=== PATIENT | female | born 1980 | race Two or more races ===

== ENCOUNTER 2016-11-22 05:25 | Emergency (ER) | payer MEDICAID ==
[~2016-11-22] VITALS: Ht 157.5 cm; Wt 72.6 kg
[~2016-11-22 05:25] MED LIST: EXCEDRIN MIGRA1 EAC1 PO; IBUPROFEN600 MG ORAL; NKM; NORCO 5-325 TA1 EACH ORAL; REGLAN10 MG ORAL; ZOFRAN4 MG ORAL
[2016-11-22 05:40] VITALS: BP 155/99
[2016-11-22] MEDS ORDERED: HYDROmorphone 1mg/ml Carpuject IM ONE (06:00)
[2016-11-22] MEDS ORDERED: HYDROCODON-ACE1 EA15 ORAL (06:14)
--- NOTE | 2016-11-22 06:14 | Emergency Room Report ---
History of Present Illness General Chief Complaint: Headache Source: Patient Present Illness HPI Is a 36-year-old female with history migraine. She said she gets it monthly and usually able to tolerate with tguj-sux-hjlscnk medication. About once a year or so it gets severe that she has to go to the hospital. This is one of those time. She's been having headache is been ongoing for about 12 hours. Pain is diffuse and throbbing in nature. She has photophobia and has vomiting. Similar to previous episode. No fever or chills. No trauma. Similar symptom in the past. Pain is diffuse in nature. Lfue-oka-yvzxgzt medication not helping. Allergies: Coded Allergies: No Known Allergies (Unverified , 08/06/14) Patient History Past Medical History: see triage record, old chart reviewed Past Surgical History: other Pertinent Family History: none Social History: Denies: smoking Last Menstrual Period: LAST WEEK Now: No : 3 Immunizations: other Reviewed Nursing Documentation: PMH: Agreed, PSxH: Agreed Nursing Documentation-PMH Past Medical History: No Stated History Hx Neurological Problems: No - Chronic MEEK Review of Systems Eye: Denies: blurred vision, eye pain ENT: Denies: ear pain, nose congestion, throat swelling Respiratory: Denies: cough, shortness of breath Cardiovascular: Denies: chest pain, palpitations Gastrointestinal: Denies: abdominal pain, diarrhea, nausea, vomiting Musculoskeletal: Denies: back pain, joint pain Skin: Denies: rash Neurological: Reports: headache, Denies: numbness Endocrine: Denies: increased thirst, increased urine Hematologic/Lymphatic: Denies: easy bruising All Other Systems: negative except mentioned in HPI Physical Exam Vital Signs Date Time Temp Pulse Resp B/P Pulse Ox O2 Delivery O2 Flow Rate FiO2 11/22/16 05:34 97.2 64 18 159/103 98 Room Air vitals with hypertension Sp02 EP Interpretation: reviewed, normal General Appearance: well appearing, no apparent distress, alert Head: normocephalic, atraumatic Eyes: bilateral eye EOMI, bilateral eye PERRL ENT: hearing grossly normal, normal pharynx Neck: full range of motion, supple, no meningismus Respiratory: chest non-tender, lungs clear, normal breath sounds Cardiovascular #1: regular rate, rhythm, no murmur Gastrointestinal: normal bowel sounds, non tender, no mass, no organomegaly, no bruit, non-distended Musculoskeletal: back normal, gait/station normal, normal range of motion Psychiatric: mood/affect normal Skin: warm/dry Medical Decision Making Diagnostic Impression: Primary Impression: Headache Qualified Codes: R51 - Headache ER Course Patient with headache consistent with her previous migraine. No evidence of meningitis, bleed, or neoplastic process. She felt better now. We'll discharge home. Last Vital Signs Date Time Temp Pulse Resp B/P Pulse Ox O2 Delivery O2 Flow Rate FiO2 11/22/16 05:40 97.6 77 19 155/99 99 Room Air Status: improved Disposition: HOME, SELF-CARE Condition: Stable Scripts Hydrocodone/Acetaminophen 5-325* (HYDROCODONE/ACETAMINOPHEN 5-325*) 1 Each Tablet 1 TAB ORAL Q6H Y for For Pain, #30 TAB 0 Refills Prov: DEENA TENA M.D. 11/22/16 Referrals: NOT CHOSEN [facility]/,REFERRING (PCP) Patient Instructions: Migraine Headache Additional Instructions: Followup with your DrSurendra in 7 days. Return if symptom worsen. DEENA TENA M.D. November 22, 2016 06:14
[2016-11-22 06:20] VITALS: BP 148/96
== END 2016-11-22 06:20 | disposition home or self-care (01) ==
LOC: EMR 05:50
DX: R51 Headache (principal); H53.149 Visual discomfort, unspecified; R11.10 Vomiting, unspecified
CPT/HCPCS: 96372; 99283; J1170; J2550

== ENCOUNTER 2017-01-18 05:02 | Emergency (ER) | payer MEDICAID ==
[~2017-01-18] VITALS: Ht 157.5 cm; Wt 65.8 kg
[~2017-01-18 05:02] MED LIST changes: +HYDROCODON-ACE1 EA15 ORAL
[2017-01-18] MEDS ORDERED: NKM (05:08)
--- NOTE | 2017-01-18 05:28 | Emergency Room Report ---
History of Present Illness General Chief Complaint: Headache Source: Patient Present Illness HPI The patient presents with a headache. It's frontal. She has what sounds like an aura with some flashing lights. She has been vomiting and has nausea with this. She's been here and seen here multiple times with these headaches. She had a CAT scan done in the past = normal. Has had labs done in the past = normal. She does not have a private physician at this time. She denies any fevers, vomiting blood, chest pain, shortness of breath, productive cough, skin rash. She denies dysuria. Her last period was 2 weeks ago normal for her. Is not the worst headache of her life. Pain 10/10 pounding with some radiation to back of head. Meds in the past haven't helped. She does not have medicine for nausea. No weakness, numbness, seizure, incontinence, blood thinners, oncologic problems. These HAs scare her. 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 Now: No : 3 Para: 3 Reviewed Nursing Documentation: PMH: Agreed, PSxH: Agreed Nursing Documentation-PMH Past Medical History: No Stated History Hx Neurological Problems: No - Chronic MEEK Review of Systems All Other Systems: negative except mentioned in HPI Physical Exam Vital Signs Date Time Temp Pulse Resp B/P Pulse Ox O2 Delivery O2 Flow Rate FiO2 01/18/17 05:04 98.4 78 14 175/100 97 Room Air Sp02 EP Interpretation: reviewed, normal General Appearance: well appearing, no apparent distress, GCS 15 Head: normocephalic Eyes: bilateral eye PERRL, bilateral eye normal inspection ENT: moist mucus membranes Neck: supple Respiratory: lungs clear, normal breath sounds Cardiovascular #1: regular rate, rhythm Cardiovascular #2: 2+ radial (R) Gastrointestinal: normal inspection, normal bowel sounds, non tender, no mass, non-distended Musculoskeletal: back normal, gait/station normal, normal range of motion Neurologic: alert, 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 Differential includes migraine, tension, trigeminal neuralgia, other headache that time. By her history it sounds like migraine. In the past when others have see her they diagnosed auras. Patient will be treated with Reglan, Benadryl and Toradol. She has a nonfocal neurologic exam and no imaging is indicated at this time. She's afebrile. Labs and CT are reviewed when she had the same problem. Improved with reglan and toradol (she reported pain resolved to me, but this is not recorded). No medical emergency. I stressed need to have her own MD and to seek neurologic consultation. Patient stable for outpatient observation and treatment. Last Vital Signs Date Time Temp Pulse Resp B/P Pulse Ox O2 Delivery O2 Flow Rate FiO2 01/18/17 06:33 98.4 01/18/17 06:30 14 160/98 97 Room Air 01/18/17 05:04 78 Status: improved Disposition: HOME, SELF-CARE Condition: Improved Scripts Ibuprofen* (MOTRIN*) 600 Mg Tablet 600 MG ORAL Q6H Y for For Pain, #16 TAB Prov: Darrel Morillo M.D. 01/18/17 Tramadol Hcl* (ULTRAM*) 50 Mg Tablet 50 MG ORAL Q6H Y for For Pain, #10 TAB 0 Refills Prov: Darrel Morillo M.D. 01/18/17 Ondansetron Odt* (ZOFRAN ODT*) 4 Mg Tab.rapdis 4 MG ORAL Q8HR Y for Nausea & Vomiting, #8 TAB 1 Refill Prov: Drarel Morillo M.D. 01/18/17 Referrals: NOT CHOSEN [facility]/,REFERRING (PCP) Darrel Morillo M.D. Jan 18, 2017 05:28
[2017-01-18] MEDS ORDERED: DiphenhydrAMINE 50mg/ml Inj IVP ONE (05:30)
[2017-01-18] MEDS ORDERED: Metoclopramide 10mg/2ml Inj IVP ONE (05:30)
[2017-01-18] MEDS ORDERED: Ketorolac 30mg Inj IV ONE (05:30)
[2017-01-18] MEDS ORDERED: TRAMADOL HCL50 MG ORAL (06:22)
[2017-01-18] MEDS ORDERED: IBUPROFEN600 MG ORAL (06:22)
[2017-01-18] MEDS ORDERED: ZOFRAN ODT4 MG ORAL (06:22)
[2017-01-18 06:29] VITALS: BP 160/98
[2017-01-18 06:30] VITALS: BP 160/98
== END 2017-01-18 06:35 | disposition home or self-care (01) ==
LOC: EMR 05:16
DX: R51 Headache (principal)
CPT/HCPCS: 96374; 96375; 99284; J1200; J1885; J2765

== ENCOUNTER 2017-06-05 19:07 | Emergency (ER) | payer MEDICAID ==
[~2017-06-05] VITALS: Ht 162.6 cm; Wt 63.5 kg
[~2017-06-05 19:07] MED LIST changes: +TRAMADOL HCL50 MG ORAL; +ZOFRAN ODT4 MG ORAL
[2017-06-05 19:29] VITALS: BP 138/78
[2017-06-05] MEDS: Metoclopramide 10mg/2ml Inj IM ONE (19:39)
[2017-06-05] MEDS: Excedrin Migraine tab ORAL ONE (19:40)
[2017-06-05 20:07] LABS: APPEARANCE,URINE CLEAR; KETONES,URINE NEGATIVE (NEGATIVE); LEUKOCYTE ESTERASE ,URINE NEGATIVE (NEGATIVE); NITRITE,URINE NEGATIVE (NEGATIVE); PH,URINE 6 (4.5-8.0); PROTEIN,URINE NEGATIVE (NEGATIVE); UROBILINOGEN,URINE NORMAL MG/DL (0.0-1.0)
[2017-06-05 20:13] LABS: BACTERIA,URINE FEW /HPF; SQUAMOUS EPITHELIAL CELL,UR FEW /LPF (NONE/OCC); WBC,URINE 0-2 /HPF (0 - 2)
--- NOTE | 2017-06-05 20:34 | Emergency Room Report ---
History of Present Illness General Chief Complaint: Headache Source: Patient Present Illness HPI 37-year-old female presents to the emergency department complaining of 9/10 in severity right-sided throbbing headache since this a.m. with progressive onset. Patient reports history of migraines and she states that her current symptoms are similar in character to previous migraines. Patient denies head trauma, nausea, vomiting, fevers, chills, neck pain or stiffness. Patient states that she took rlzu-eyh-uwvilzi pain medication without relief. Patient denies dysuria, frequency, hematuria or . Patient denies abdominal pain. She denies blurry vision, changes in vision, seeing floaters. Patient reports some mild photophobia. denies recent spinal procedures. Patient denies hyperacusis. Denies CP, Palpitations, LOC, AMS, dizziness, Changes in Vision, Sensation, paresthesias, or a sudden severe headache out of character to previous headaches. Allergies: Coded Allergies: No Known Allergies (Unverified , 08/06/14) Patient History Past Medical History: see triage record, migraines Past Surgical History: none Pertinent Family History: none Last Menstrual Period: 06/05/17 Now: No Reviewed Nursing Documentation: PMH: Agreed, PSxH: Agreed Nursing Documentation-PMH Past Medical History: No History, Except For Hx Neurological Problems: No - Chronic MEEK Review of Systems All Other Systems: negative except mentioned in HPI Physical Exam Vital Signs Date Time Temp Pulse Resp B/P (MAP) Pulse Ox O2 Delivery O2 Flow Rate FiO2 06/05/17 19:13 98.2 82 17 138/78 100 Room Air Sp02 EP Interpretation: reviewed, normal General Appearance: alert, GCS 15, non-toxic, mild distress Head: normocephalic, atraumatic Eyes: bilateral eye normal inspection, bilateral eye PERRL, bilateral eye photophobia ENT: hearing grossly normal, normal voice, TMs + canals normal Neck: full range of motion, no meningismus, no bony tend Respiratory: chest non-tender, lungs clear, normal breath sounds, speaking full sentences Cardiovascular #1: regular rate, rhythm Gastrointestinal: non tender, soft Rectal: deferred Genitourinary: normal inspection, no CVA tenderness Musculoskeletal: back normal, gait/station normal, normal range of motion, non- tender Neurologic: alert, oriented x3, responsive, motor strength/tone normal, sensory intact, normal gait, speech normal, no pronator, other - equal transmission operator strength, no facial droop. Skin: normal color, no rash, warm/dry, well hydrated Lymphatic: no adenopathy Medical Decision Making PA Attestation Dr. Jacome is my supervising Physician whom patient management has been discussed with. Diagnostic Impression: Primary Impression: Headache Qualified Codes: R51 - Headache ER Course 37-year-old female presents to the emergency department complaining of 9/10 in severity right-sided throbbing headache since this a.m. with progressive onset. Patient reports history of migraines and she states that her current symptoms are similar in character to previous migraines. Patient denies head trauma, nausea, vomiting, fevers, chills, neck pain or stiffness. Patient states that she took uxam-enx-eabyljf pain medication without relief. Patient denies dysuria, frequency, hematuria or . Patient denies abdominal pain. She denies blurry vision, changes in vision, seeing floaters. Patient reports some mild photophobia. denies recent spinal procedures. Patient denies hyperacusis. Denies CP, Palpitations, LOC, AMS, dizziness, Changes in Vision, Sensation, paresthesias, or a sudden severe headache out of character to previous headaches. Ddx considered but are not limited to migraine, SAH, Psedudo motor Cerebri, Mass lesion, Cluster MEEK, Tension MEEK, Post lumbar puncture MEEK. Vital signs: are WNL, pt. is afebrile H&PE are most consistent with migraine headache ORDERS: -UA: Unremarkable -Urine Hcg: Negative ED INTERVENTIONS: -Reglan PO - Excedrin PO -Upon re-evaluation pt. reports her MEEK has resolved with ED interventions. d/w pt. the results of her Urine testing. I do not suspect an emergent condition at this time. With current presentation, pt. is stable for close outpatient follow up and conservative treatment. D/w pt. to return promptly to ED with worsening or new symptoms.- Pt. (and or responsible alliance party) verbalizes' understanding and agreement with proposed treatment plan. DISCHARGE: At this time pt. is stable for d/c to home. Will provide printed patient care instructions, and any necessary prescriptions. Care plan and follow up instructions have been discussed with the patient prior to discharge. Labs Test 06/05/17 19:38 Urine Color Pale yellow Urine Appearance Clear Urine pH 6 (4.5-8.0) Urine Specific [place] 1.015 (1.005-1.035) Urine Protein Negative (NEGATIVE) Urine Glucose (UA) Negative (NEGATIVE) Urine Ketones Negative (NEGATIVE) Urine Occult Blood 4+ (NEGATIVE) Urine Nitrite Negative (NEGATIVE) Urine Bilirubin Negative (NEGATIVE) Urine Urobilinogen Normal MG/DL (0.0-1.0) Urine Leukocyte Esterase Negative (NEGATIVE) Urine RBC 5-10 /HPF (0 - 2) Urine WBC 0-2 /HPF (0 - 2) Urine Squamous Epithelial Cells Few /LPF (NONE/OCC) Urine Bacteria Few /HPF (NONE) Urine HCG, Qualitative Negative Last Vital Signs Date Time Temp Pulse Resp B/P (MAP) Pulse Ox O2 Delivery O2 Flow Rate FiO2 06/05/17 19:13 98.2 82 17 138/78 100 Room Air Disposition: HOME, SELF-CARE Condition: Stable Scripts Aspirin/Acetaminophen/Caffeine (EXCEDRIN MIGRAINE GELTAB) 1 Each Tablet 1 EACH PO Q6HR, #20 TAB Prov: Sumi Gibson 06/05/17 Metoclopramide Hcl* (REGLAN*) 10 Mg Tablet 10 MG ORAL THREE TIMES A DAY Y for For Headache, #20 TAB Prov: Sumi Gibson 06/05/17 Patient Instructions: Migraine Headache Additional Instructions: Take medications as directed. Follow up with a Primary Care Provider in 3-5 days for Neurologist referral , even if your symptoms have resolved. --Please review list of primary care clinics, if you do not already have a primary care provider Return sooner to ED if new symptoms occur, or current symptoms become worse. - Please note that this Emergency Department Report was dictated using [employer] radiation oncology technology software, occasionally this can lead to erroneous entry secondary to interpretation by the dictation equipment. Sumi Gibson Jun 05, 2017 20:34
[2017-06-05] MEDS ORDERED: EXCEDRIN MIGRA1 EACH PO (20:35)
[2017-06-05] MEDS ORDERED: REGLAN10 MG ORAL (20:35)
[2017-06-05 20:45] VITALS: BP 137/79
== END 2017-06-05 20:45 | disposition home or self-care (01) ==
LOC: EMR 19:26
DX: R51 Headache (principal)
CPT/HCPCS: 81003; 81025; 96372; 99284; J2765

== ENCOUNTER 2017-10-24 09:18 | Emergency (ER) | payer MEDICAID ==
[~2017-10-24] VITALS: Ht 165.1 cm; Wt 69.9 kg
[~2017-10-24 09:18] MED LIST changes: +EXCEDRIN MIGRA1 EACH PO
[2017-10-24 09:31] VITALS: BP 139/85
[2017-10-24] MEDS ORDERED: Ketorolac 60mg Inj IM ONE (10:15)
[2017-10-24] MEDS ORDERED: Ketorolac 30mg Inj IV ONE (10:30)
[2017-10-24 10:52] LABS: HEMATOCRIT 40.9 % (37.0-47.0); HEMOGLOBIN 14.3 G/DL (12.0-16.0); MEAN CORPUSCULAR VOLUME 89 FL (80-99); PLATELET COUNT 219 K/UL (150-450); RED BLOOD COUNT 4.58 M/UL (4.20-5.40); RED CELL DISTRIBUTION WIDTH 12.2 % (11.6-14.8); WHITE BLOOD COUNT 17.5 K/UL (4.8-10.8)
[2017-10-24 10:54] LABS: ANION GAP 13 mmol/L (5-15); BLOOD UREA NITROGEN 12 mg/dL (7-18); CALCIUM 8.9 MG/DL (8.5-10.1); CARBON DIOXIDE 20 MMOL/L (21-32); CHLORIDE 104 MMOL/L (98-107); CREATININE 0.7 MG/DL (0.55-1.30); POTASSIUM 3.7 MMOL/L (3.5-5.1); SODIUM 137 MMOL/L (136-145)
--- NOTE | 2017-10-24 11:38 | Diagnostic Imaging Report ---
Indication: Neck pain Technique: CT scan of the neck was performed utilizing automated exposure control with intravenous contrast material. Continuous helical scanning was obtained with displayed 5 mm sections in axial, sagittal and coronal planes. Comparison: None CT dose: Total DLP 500 mGycm; CTDI vol 18.4 mGy Findings: There is enlargement of the bilateral palatine tonsils, left greater than right. No discrete drainable abscess is identified at this time. The nasopharynx, oropharynx, hypopharynx and larynx are patent. The bilateral parotid, submandibular and sublingual glands are normal in size and morphology without calcification. The oral tongue, tongue base and floor of mouth demonstrate no obvious mass. The thyroid gland is normal in size and morphology without calcification. Osseous structures demonstrate no acute abnormality. Prominent left level 2 nodes are seen measuring up to 1.5 x 3 cm. Impression: Enlargement of the bilateral palatine tonsils, left greater than right. No discrete drainable abscess identified at this time. Clinical correlation recommended. Prominent left level 2 nodes measuring up to 1.5 x 3 cm may be reactive. Clinical correlation recommended. The CT scanner at [facility] is accredited by the [employer] and the scans are performed using protocols designed to limit radiation exposure to as low as reasonably achievable to attain images of sufficient resolution adequate for diagnostic evaluation.
--- NOTE | 2017-10-24 12:58 | Emergency Room Report ---
History of Present Illness General Chief Complaint: Sore Throat Source: Patient Present Illness HPI The patient states that she has had a sore throat since yesterday. She has also had fever, chills and body aches. She denies chest pain or shortness of breath. She denies cough or congestion. She denies headache or neck pain or stiffness. She has no other complaints. Allergies: Coded Allergies: No Known Allergies (Unverified , 08/06/14) Patient History Past Medical History: none Social History: Denies: smoking, alcohol use, drug use Last Menstrual Period: September Reviewed Nursing Documentation: PMH: Agreed; PSxH: Agreed Nursing Documentation-PMH Hx Neurological Problems: No - Chronic MEEK Review of Systems All Other Systems: negative except mentioned in HPI Physical Exam Vital Signs Date Time Temp Pulse Resp B/P (MAP) Pulse Ox O2 Delivery O2 Flow Rate FiO2 10/24/17 09:21 98.4 100 18 139/85 97 Room Air 98.4 Sp02 EP Interpretation: reviewed, normal General Appearance: no apparent distress, alert, GCS 15, non-toxic Head: normocephalic, atraumatic Eyes: bilateral eye normal inspection, bilateral eye PERRL ENT: hearing grossly normal, no angioedema, normal voice, TMs + canals normal, uvula midline, tonsillar swelling - Patchy tonsillar exudate. L. tonsil larger than R. tonsil., tonsillar exudate Neck: full range of motion, supple/symm/no masses Respiratory: chest non-tender, lungs clear, normal breath sounds, speaking full sentences Cardiovascular #1: regular rate, rhythm, no edema Gastrointestinal: normal bowel sounds, non tender, soft, non-distended, no guarding, no rebound Rectal: deferred Musculoskeletal: back normal, gait/station normal, normal range of motion, non- tender Neurologic: alert, oriented x3, responsive, motor strength/tone normal, sensory intact, speech normal Psychiatric: judgement/insight normal, memory normal, mood/affect normal, no suicidal/homicidal ideation Skin: normal color, no rash, warm/dry, well hydrated Medical Decision Making Diagnostic Impression: Primary Impression: Strep pharyngitis Additional Impression: Tonsillitis ER Course This patient has findings on physical exam of strep pharyngitis and tonsillitis. She has exudate, fever and body aches. I was concerned she could have the beginnings of a peritonsillar abscess, although, uvula is midline and there is no trismus. I obtained a CT of the neck and there is no evidence of abscess at this time. The patient was educated on the signs and symptoms of a peritonsillar abscess. I will place the patient on a course of antibiotics. Patient given close return precautions and follow-up instructions. Laboratory Tests Test 10/24/17 10:35 White Blood Count 17.5 K/UL (4.8-10.8) H Red Blood Count 4.58 M/UL (4.20-5.40) Hemoglobin 14.3 G/DL (12.0-16.0) Hematocrit 40.9 % (37.0-47.0) Mean Corpuscular Volume 89 FL (80-99) Mean Corpuscular Hemoglobin 31.2 PG (27.0-31.0) H Mean Corpuscular Hemoglobin Concent 34.9 G/DL (32.0-36.0) Red Cell Distribution Width 12.2 % (11.6-14.8) Platelet Count 219 K/UL (150-450) Mean Platelet Volume 9.3 FL (6.5-10.1) Neutrophils (%) (Auto) % (45.0-75.0) Lymphocytes (%) (Auto) % (20.0-45.0) Monocytes (%) (Auto) % (1.0-10.0) Eosinophils (%) (Auto) % (0.0-3.0) Basophils (%) (Auto) % (0.0-2.0) Differential Total Cells Counted 100 Neutrophils % (Manual) 85 % (45-75) H Lymphocytes % (Manual) 9 % (20-45) L Monocytes % (Manual) 5 % (1-10) Eosinophils % (Manual) 0 % (0-3) Basophils % (Manual) 0 % (0-2) Band Neutrophils 1 % (0-8) Platelet Estimate Adequate Platelet Morphology Normal Sodium Level 137 MMOL/L (136-145) Potassium Level 3.7 MMOL/L (3.5-5.1) Chloride Level 104 MMOL/L (98-107) Carbon Dioxide Level 20 MMOL/L (21-32) L Anion Gap 13 mmol/L (5-15) Blood Urea Nitrogen 12 mg/dL (7-18) Creatinine 0.7 MG/DL (0.55-1.30) Estimate Glomerular Filtration Rate > 60 mL/min (>60) Glucose Level 103 MG/DL (74-106) Calcium Level 8.9 MG/DL (8.5-10.1) CT/MRI/US Diagnostic Results CT/MRI/US Diagnostic Results : Imaging Test Ordered: CT Neck: Impression Impression: Enlargement of the bilateral palatine tonsils, left greater than right. No discrete drainable abscess identified at this time. Clinical correlation recommended. Prominent left level 2 nodes measuring up to 1.5 x 3 cm may be reactive. Clinical correlation recommended. Last Vital Signs Date Time Temp Pulse Resp B/P (MAP) Pulse Ox O2 Delivery O2 Flow Rate FiO2 10/24/17 11:17 98.4 10/24/17 09:31 18 139/85 97 Room Air 10/24/17 09:21 100 Status: improved Disposition: HOME, SELF-CARE Condition: Improved Referrals: NOT CHOSEN IPA/,REFERRING (PCP) Patient Instructions: Tonsillitis, Sore Throat KEARA YARBROUGH D.O. Oct 24, 2017 12:58
[2017-10-24] MEDS ORDERED: IBUPROFEN600 MG ORAL (13:01)
[2017-10-24] MEDS ORDERED: CLINDAMYCIN HC300 MG ORAL (13:01)
[2017-10-24 13:10] VITALS: BP 128/82
== END 2017-10-24 13:10 | disposition home or self-care (01) ==
LOC: EMR 09:40
DX: J02.0 Streptococcal pharyngitis (principal); J03.90 Acute tonsillitis, unspecified
CPT/HCPCS: 36415; 70491; 80048; 85007; 85025; 96374; 99284; J1885; Q9967

== ENCOUNTER 2018-09-23 17:01 | Emergency (ER) | payer MEDICAID ==
[~2018-09-23] VITALS: Ht 165.1 cm; Wt 70.3 kg
[~2018-09-23 17:01] MED LIST changes: +CLINDAMYCIN HC300 MG ORAL
--- NOTE | 2018-09-23 17:40 | NUR ---
ED Nurse Note: PT WALKED IN TO ER TODAY FROM HOME. AOX4. PT C/O ANTERIOR HEADACHE, 04/14 AND NAUSEA X YESTERDAY. PT DENIES VOMITING OR DIZZINESS. GAIT STEADY. BP AT BEDSIDE: 168/96. EQUAL AND STRONG DIRECTOR OF PATIENT CARE AND PULLS.
[2018-09-23 17:54] VITALS: BP 168/96
[2018-09-23] MEDS ORDERED: Ketorolac 30mg Inj IM ONE (18:15)
[2018-09-23] MEDS ORDERED: Metoclopramide 10mg/2ml Inj IM ONE (18:15)
[2018-09-23] MEDS ORDERED: DiphenhydrAMINE 50mg/ml Inj IM ONE (18:15)
[2018-09-23] MEDS ORDERED: EXCEDRIN MIGRA1 EACH PO (18:40)
[2018-09-23] MEDS ORDERED: REGLAN10 MG ORAL (18:40)
[2018-09-23 18:50] VITALS: BP 134/86
--- NOTE | 2018-09-23 18:51 | NUR ---
ED Nurse Note: PT LAYING PEACEFULLY IN BED IN NAD. AOX4. PRESCRIPTIONS AND DISCHARGE PAPERWORK EXPLAINED TO PT. PT VERBALIZES UNDERSTANDING AND ALL QUESTIONS ANSWERED. PRESCRIPTIONS AND DISCHARGE PAPERWORK GIVEN TO PT AND ID WRISTBAND REMOVED. PT WALKED OUT OF ER WITH STEADY GAIT AND ALL BELONGINGS.
--- NOTE | 2018-09-24 13:53 | Emergency Room Report ---
History of Present Illness General Chief Complaint: Headache Source: Patient Present Illness HPI 38-year-old female presents ED complaining of headache. Started 2 days ago. Frontal, throbbing, 8 out of 10, nonradiating. Denies photophobia. Denies blurry vision. Denies nausea or vomiting. Denies neck stiffness. Denies fevers or chills. Notes history of migraines. States her goxm-vhe-[id number] medications not helping at this time. No other aggravating relieving factors. Denies any other associated symptoms Allergies: Coded Allergies: No Known Allergies (Unverified , 08/06/14) Patient History Past Medical History: migraines Past Surgical History: none Pertinent Family History: none Social History: Denies: smoking, alcohol use, drug use Last Menstrual Period: now Now: No Immunizations: UTD Reviewed Nursing Documentation: PMH: Agreed; PSxH: Agreed Nursing Documentation-PMH Past Medical History: No History, Except For Hx Neurological Problems: No - Chronic MEEK Review of Systems All Other Systems: negative except mentioned in HPI Physical Exam Vital Signs Date Time Temp Pulse Resp B/P (MAP) Pulse Ox O2 Delivery O2 Flow Rate FiO2 09/23/18 17:15 98.1 64 18 166/97 100 Room Air Sp02 EP Interpretation: reviewed, normal General Appearance: no apparent distress, alert, GCS 15, non-toxic Head: normocephalic, atraumatic Eyes: bilateral eye normal inspection, bilateral eye PERRL ENT: hearing grossly normal, normal pharynx, no angioedema, normal voice Neck: full range of motion, supple, no meningismus, supple/symm/no masses Respiratory: chest non-tender, lungs clear, normal breath sounds, speaking full sentences Cardiovascular #1: regular rate, rhythm, no edema Cardiovascular #2: 2+ carotid (R), 2+ carotid (L), 2+ radial (R), 2+ radial (L) , 2+ dorsalis pedis (R), 2+ dorsalis pedis (L) Gastrointestinal: normal bowel sounds, non tender, soft, non-distended, no guarding, no rebound Rectal: deferred Genitourinary: normal inspection, no CVA tenderness Musculoskeletal: back normal, gait/station normal, normal range of motion, non- tender Neurologic: alert, oriented x3, responsive, motor strength/tone normal, sensory intact, speech normal Psychiatric: judgement/insight normal, memory normal, mood/affect normal, no suicidal/homicidal ideation Reflexes: 3+ bicep (R), 3+ bicep (L), 3+ tricep (R), 3+ tricep (L), 3+ knee (R) , 3+ knee (L) Skin: normal color, no rash, warm/dry, well hydrated Lymphatic: no adenopathy Medical Decision Making Diagnostic Impression: Primary Impression: Migraine Qualified Codes: G43.909 - Migraine, unspecified, not intractable, without status migrainosus ER Course Hospital Course 38-year-old female presents ED complaining of headache. History of migraine Differential diagnoses include: tension headache, migraine, dehydration, intracranial bleed Clinical course Patient placed on stretcher. After initial history physical exam reveals a female in no acute distress. Cranial nerves II through XII intact. Extraocular movements intact. No nuchal rigidity. No photophobia Patient given Toradol IM, Benadryl IM, Reglan. On reassessment headache is improved. Discussed findings with patient. Safe for discharge close outpatient follow- up. We'll provide referrals i. I feel this is a highly complex case requiring extensive working including EKG/Rhythm strip, Xray/CT/US, Blood/urine lab work, repeat exams while in ED, and administration of strong opiates/narcotics for pain control, admission to hospital or close patient follow up. Diagnosis - migraine stable and discharged to home with Rx Reglan, excedrin. f/up with PMD. return to ED if symptoms recur/worsen. Last Vital Signs Date Time Temp Pulse Resp B/P (MAP) Pulse Ox O2 Delivery O2 Flow Rate FiO2 09/23/18 18:50 98.3 62 16 134/86 100 Room Air Status: improved Disposition: HOME, SELF-CARE Condition: Stable Scripts Aspirin/Acetaminophen/Caffeine (EXCEDRIN MIGRAINE GELTAB) 1 Each Tablet 1 EACH PO Q6HR, #20 TAB Prov: Kervin Acosta MD 09/23/18 Metoclopramide Hcl* (REGLAN*) 10 Mg Tablet 10 MG ORAL THREE TIMES A DAY PRN for For Headache, #20 TAB Prov: Kervin Acosta MD 09/23/18 Referrals: NOT CHOSEN IPA/,REFERRING (PCP) [facility] Patient Instructions: Migraine Headache Kervin Acosta MD Sep 24, 2018 13:53
== END 2018-09-23 18:53 | disposition home or self-care (01) ==
LOC: EMR 18:07
DX: G43.909 Migraine, unspecified, not intractable, without status migrainosus (principal)
CPT/HCPCS: 96372; 99283; J1200; J1885; J2765

== ENCOUNTER 2020-05-27 22:06 | Emergency (ER) | payer MEDICAID ==
[~2020-05-27] VITALS: Ht 165.1 cm; Wt 68.0 kg
[2020-05-27 22:21] VITALS: BP 168/98
--- NOTE | 2020-05-27 22:23 | NUR ---
ED Nurse Note: walked in to ed c/o headache onset 0400. pt reports emesis today. denies any visual changes, breathing unlabored, vss, nad, aaox4, ambulatory, urine collected and sent to lab. [email or web address] at bedside, on cadiac monitor.
--- NOTE | 2020-05-27 22:27 | Emergency Room Report ---
History of Present Illness General Chief Complaint: Headache Source: Patient, Medical Record Present Illness HPI This is a 40-year-old female with a history of migraine. She gets it frequently. She presents with chief complaint of headache and migraine in nature. Mostly left-sided. Pain is throbbing in nature. Onset this morning. Lights bother her eyes. She has nausea and vomiting. No diarrhea. No fever chills. No focal deficit. Gradual onset. Similar to previous episodes. Currently not taking any medication. 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 Patient History Past Medical History: see triage record, old chart reviewed, migraines Past Surgical History: none Pertinent Family History: none Social History: Denies: smoking Now: No Immunizations: other Reviewed Nursing Documentation: PMH: Agreed; PSxH: Agreed Nursing Documentation-PMH Hx Neurological Problems: No - Chronic MEEK Review of Systems Eye: Denies: eye pain, blurred vision ENT: Denies: ear pain, nose congestion, throat swelling Respiratory: Denies: cough, shortness of breath Cardiovascular: Denies: chest pain, palpitations Gastrointestinal: Reports: nausea, vomiting; Denies: abdominal pain, diarrhea Musculoskeletal: Denies: back pain, joint pain Skin: Denies: rash Neurological: Reports: headache; Denies: numbness Endocrine: Denies: increased thirst, increased urine Hematologic/Lymphatic: Denies: easy bruising All Other Systems: negative except mentioned in HPI Physical Exam Vital Signs Date Time Temp Pulse Resp B/P (MAP) Pulse Ox O2 Delivery O2 Flow Rate FiO2 05/27/20 22:15 99.0 75 16 171/104 (126) 98 Room Air Vitals with high blood pressure Sp02 EP Interpretation: reviewed, normal General Appearance: well appearing, no apparent distress, alert Head: normocephalic, atraumatic Eyes: bilateral eye PERRL, bilateral eye EOMI ENT: hearing grossly normal, normal pharynx Neck: full range of motion, supple, no meningismus Respiratory: chest non-tender, lungs clear, normal breath sounds Cardiovascular #1: regular rate, rhythm, no murmur Gastrointestinal: normal bowel sounds, non tender, no mass, no organomegaly, no bruit, non-distended Musculoskeletal: back normal, normal range of motion, gait/station normal Psychiatric: mood/affect normal Medical Decision Making Diagnostic Impression: Primary Impression: Migraine Qualified Codes: G43.009 - Migraine without aura, not intractable, without status migrainosus Additional Impression: Hypertension Qualified Codes: I10 - Essential (primary) hypertension ER Course Presents with headache. She says is typical for migraine headache. Probably worsened because of her high blood pressure. She does not have a history of high blood pressure but blood pressure has been persistently high here. Even high after migraine resolved. We will put her on antihypertensive. No evidence of endorgan damage. She has no focal deficit to warrant a CT scan. Last Vital Signs Date Time Temp Pulse Resp B/P (MAP) Pulse Ox O2 Delivery O2 Flow Rate FiO2 05/27/20 22:21 98.6 85 16 168/98 98 Room Air Status: improved Disposition: HOME, SELF-CARE Condition: Stable Scripts Hydrocodone/Acetaminophen 5-325* (HYDROCODONE/ACETAMINOPHEN 5-325*) 1 Each T ablet 1 TAB ORAL Q6H PRN for For Pain, #15 TAB 0 Refills Prov: Bolivar Carias MD 05/27/20 Amitriptyline Hcl (AMITRIPTYLINE HCL) 50 Mg Tablet 50 MG ORAL BEDTIME, #30 TAB Prov: Bolivar Carias MD 05/27/20 Amlodipine Besylate (Norvasc) 10 Mg Tablet 10 MG ORAL DAILY, #90 TAB Prov: Bolivar Carias MD 05/27/20 Patient Instructions: Migraine Headache Additional Instructions: Follow-up with your doctor in 7 days to recheck on your blood pressure. Return if symptoms worsen. Bolivar Carias MD May 27, 2020 22:27
[2020-05-27] MEDS ORDERED: Metoclopramide 10mg/2ml Inj IVP ONE (22:30)
[2020-05-27] MEDS ORDERED: DiphenhydrAMINE 50mg/ml Inj IVP ONE (22:30)
[2020-05-27] MEDS ORDERED: Ketorolac 30mg Inj IV ONE (22:30)
--- NOTE | 2020-05-27 22:30 | NUR ---
ED Nurse Note: blood drawn and sent to lab
[2020-05-27 22:41] LABS: APPEARANCE,URINE CLEAR; BASOPHILS % (AUTO) 0.8 % (0.0-2.0); BILIRUBIN, URINE NEGATIVE (NEGATIVE); COLOR,URINE PALE YELLOW; EOSINOPHILS % (AUTO) 3.1 % (0.0-3.0); GLUCOSE, URINE (UA) NEGATIVE (NEGATIVE); HEMATOCRIT 40.3 % (37.0-47.0); HEMOGLOBIN 13.4 G/DL (12.0-16.0); KETONES,URINE NEGATIVE (NEGATIVE); LEUKOCYTE ESTERASE ,URINE NEGATIVE (NEGATIVE); LYMPHOCYTES % (AUTO) 51.2 % (20.0-45.0); MEAN CORPUSCULAR VOLUME 86 FL (80-99); MONOCYTES % (AUTO) 7.2 % (1.0-10.0); NEUTROPHILS % (AUTO) 37.7 % (45.0-75.0); NITRITE,URINE NEGATIVE (NEGATIVE); PH,URINE 7 (4.5-8.0); PLATELET COUNT 259 K/UL (150-450); PROTEIN,URINE 2+ (NEGATIVE); RED BLOOD COUNT 4.69 M/UL (4.20-5.40); RED CELL DISTRIBUTION WIDTH 14.3 % (11.6-14.8); UROBILINOGEN,URINE NORMAL MG/DL (0.0-1.0); WHITE BLOOD COUNT 8.6 K/UL (4.8-10.8)
[2020-05-27 22:51] LABS: ANION GAP 9 mmol/L (5-15); BLOOD UREA NITROGEN 12 mg/dL (7-18); CALCIUM 8.7 MG/DL (8.5-10.1); CARBON DIOXIDE 28 MMOL/L (21-32); CHLORIDE 102 MMOL/L (98-107); CREATININE 0.8 MG/DL (0.55-1.30); POTASSIUM 3.8 MMOL/L (3.5-5.1); SODIUM 139 MMOL/L (136-145)
[2020-05-27] MEDS ORDERED: AMITRIPTYLINE H50 MG ORAL (23:09)
[2020-05-27] MEDS ORDERED: NORVASC10 MG ORAL (23:09)
[2020-05-27] MEDS ORDERED: HYDROCODON-ACE1 EA15 ORAL (23:09)
[2020-05-27 23:19] VITALS: BP 153/91
--- NOTE | 2020-05-27 23:19 | NUR ---
ER DISCHARGE NOTE: Patient is cleared to be discharged per ERMD, pt is aox4, on room air, with stable vital signs. pt was given dc and prescription instructions, pt was able to verbalize understanding, pt id band and iv site removed without complications. pt is able to ambulate with steady gait. pt took all belongings.
[2020-05-27 23:20] VITALS: BP 153/91
== END 2020-05-27 23:20 | disposition home or self-care (01) ==
LOC: EMR 22:20
DX: G43.009 Migraine without aura, not intractable, without status migrainosus (principal); I10 Essential (primary) hypertension
CPT/HCPCS: 36415; 80048; 81001; 81025; 85025; 96361; 96374; 96375; J0360; J1200; J1885; J2765; J7030; Z7502; 99284